=== PATIENT | male | born 1950 | race Caucasian/White ===

== ENCOUNTER → 2016-06-30 | Outpatient (REF) | payer OTHER ==
[~2016-06-30] MED LIST: AMLO10TA2 PO; CARV12.5 PO; FENO160T10 PO; HIZE20IN SC; INSULADS SC; LISI40TAB PO; MIRA3350 PO; OMEP20CA3 PO; ONGL1TAB9 PO; SERO1TAB2 PO
[2016-07-01 12:55] LABS: CALCIUM LEVEL 9.6 MG/DL (8.8-10.2); CREATININE FOR GFR 1.45 MG/DL (0.70-1.30); GLOMERULAR FILTRATION RATE 52.2 (>49); POTASSIUM SERUM 4.8 MEQ/L (3.5-5.1)
== END ==
LOC: M SFHCCLAY 14:05
PROVIDERS: ATTEND Family Medicine
DX: E11.22 Type 2 diabetes mellitus with diabetic chronic kidney disease (principal)

== ENCOUNTER → 2016-09-20 | Outpatient (REF) | payer OTHER ==
[2016-09-20 18:01] LABS: MEAN CORPUSCULAR HEMOGLOBIN 27.2 pg (27.0-33.0); MEAN CORPUSCULAR HGB CONC 32.5 g/dl (32.0-36.5); MEAN CORPUSCULAR VOLUME 83.9 fl (80.0-96.0); RED CELL DISTRIBUTION WIDTH 14.6 % (11.5-14.5); WHITE BLOOD COUNT 6.1 K/mm3 (4.0-10.0)
[2016-09-23 00:06] LABS: Lyme Disease IgG/IgM Antibodie <0.91 ISR (0.00-0.90); Lyme Disease IgM Ab Quantitati <0.80 index (0.00-0.79)
== END ==
LOC: M SFHCCLAY 12:09
PROVIDERS: ATTEND Family Medicine
DX: K11.20 Sialoadenitis, unspecified (principal); R53.82 Chronic fatigue, unspecified

== ENCOUNTER → 2016-09-21 | Outpatient (REF) | payer OTHER | LOC: M SFHCCLAY 17:17 | PROVIDERS: ATTEND Family Medicine | DX: K11.20 Sialoadenitis, unspecified (principal); R53.82 Chronic fatigue, unspecified ==

== ENCOUNTER → 2016-11-25 | Outpatient (REF) | payer OTHER | LOC: M LAB REF 13:37 | PROVIDERS: ATTEND Internal Medicine Gastroenterology | DX: A04.7 Enterocolitis due to Clostridium difficile (principal) ==

== ENCOUNTER → 2016-12-01 | Outpatient (CLI) | payer OTHER ==
--- NOTE | 2016-12-16 12:50 | DEXA ---
AP SPINE L1 - L4 1.230 0.3 0.4 LT FEMUR TOTAL 0.826 -1.4 -1.4 RT FEMUR TOTAL 0.881 -1.0 -1.0 TOTAL BODY TOTAL OTHER DUAL FEMUR FRAX* ASSESSMENT Risk factors: Not performed. 10 year probability of fracture Major osteoporotic fracture % Hip fracture % COMMENTS: Normal bone densitometry spine. There is low bone density of the hips. FOLLOW-UP: Recommendation for the next bone density exam: 2 years. WILEYD
== END ==
LOC: M WHC 13:24
PROVIDERS: ATTEND Orthopaedic Surgery
DX: M25.562 Pain in left knee (principal); M25.559 Pain in unspecified hip; M16.0 Bilateral primary osteoarthritis of hip

== ENCOUNTER → 2018-10-12 | Outpatient (CLI) | payer MEDICARE ==
[~2018-10-12] MED LIST changes: -AMLO10TA2 PO; +AMLO10TA5 PO; +LISI40TA PO; -LISI40TAB PO
--- NOTE | 2018-10-12 18:20 | REP ---
MR angiography of the carotids without contrast: History: Positional vertigo. Carotid MR angiography is compared with the prior study from November 06, 2014. Common carotid arteries are unremarkable. There is mild atherosclerotic plaquing in both proximal ICAs. There is approximately 50-60% stenosis in the proximal ICA on the right side. This appears somewhat less prominent on these noncontrast studies than on the prior exam. The distal vertebral arteries are patent bilaterally. The left is dominant in size. No vertebral artery stenosis is seen. 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 Electronically Signed by Caleb Hwang MD 10/15/2018 08:24 A
== END ==
LOC: M RAD 16:40
PROVIDERS: ATTEND Family Medicine
DX: I65.21 Occlusion and stenosis of right carotid artery (principal)

== ENCOUNTER → 2018-11-02 | Outpatient (CLI) | payer MEDICARE ==
[~2018-11-02] MED LIST changes: -OMEP20CA3 PO; +OMEP20CA4 PO
--- NOTE | 2018-11-02 14:40 | REPVR ---
EXAM: MR Head Without Contrast EXAM DATE/TIME: 11/02/2018 11:53 AM CLINICAL HISTORY: 68 years old, male; Dizziness; Patient HX: Vertigo TECHNIQUE: Imaging protocol: MR of the head without contrast. COMPARISON: No relevant prior studies available. FINDINGS: Brain: No mass effect or midline shift. No extra-axial fluid collections. Mild patchy increased signal intensity of the deep greater than subcortical white matter is nonspecific, but statistically likely to be mild chronic small vessel ischemic change in a patient of this age group. 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 The largest is 3 x 5 mm (series 301 image 4). On gradient echo imaging, no susceptibility artifact to represent parenchymal calcification or blood product. Fourth ventricle and posterior fossa contents are unremarkable. No diffusion restriction to indicate recent ischemic event. Midline shift: Appropriate midline flow voids are identified. Ventricles: There is age-appropriate global brain volume loss. Ventricles are within normal limits of size and configuration. Bones/joints: The calvarium is unremarkable. Soft tissues: Normal. Sinuses: The paranasal sinuses are unremarkable. Mastoid air cells: No significant mastoid disease. Orbits: The orbital contents are unremarkable. Sella: No sellar or parasellar masses. IMPRESSION: 1. No acute intracranial abnormality. No cause for dizziness and vertigo is identified. 2. No diffusion restriction to indicate recent ischemic event. 3. Mild patchy increased signal intensity of the deep greater than subcortical white matter is nonspecific, but statistically likely to be mild chronic small vessel ischemic change in a patient of this age group. 4. 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 The largest is 3 x 5 mm. Electronically signed by: Sid Braun On 11/02/2018 14:40:34 PM
== END ==
LOC: M RAD 11:21
PROVIDERS: ATTEND Family Medicine
DX: R42 Dizziness and giddiness (principal)

== ENCOUNTER 2018-11-20 12:44 | Outpatient (RCR) | payer MEDICARE | END 2018-11-21 | LOC: M PT 12:44 | PROVIDERS: ATTEND Psychiatry & Neurology Neurology | DX: H81.10 Benign paroxysmal vertigo, unspecified ear (principal) ==

== ENCOUNTER 2018-11-27 11:30 | Outpatient (RCR) | payer MEDICARE | END 2018-12-22 | LOC: M PT 11:30 | PROVIDERS: ATTEND Psychiatry & Neurology Neurology | DX: R42 Dizziness and giddiness (principal) ==

== ENCOUNTER → 2020-09-02 | Outpatient (CLI) | payer MEDICARE ==
[~2020-09-02] MED LIST changes: -AMLO10TA5 PO; +AMLO1TAB25 PO; +EZET10TA21 PO; +HYDR-3490 PO; +KLOR10TA76 PO; +LANTINJ4 SC; +LIDOCAINE 1% MDV 20ML VIAL As Ordered ONE; -LISI40TA PO; +LISI40TA4 PO; +OMEP1CAP73 PO; -OMEP20CA4 PO; +SENN-80 PO; +SITA50TAB PO; +SODIUM BICARBONATE 8.4% INJ 50MEQ 50 ML VIAL As Ordered ONE
[2020-09-02 09:05] VITALS: BP 142/72
[2020-09-02 09:52] LABS: HEMATOCRIT 37.5 % (42.0-52.0); HEMOGLOBIN 12.2 g/dl (13.5-17.5); MEAN CORPUSCULAR HEMOGLOBIN 26.2 pg (27.0-33.0); MEAN CORPUSCULAR HGB CONC 32.5 g/dl (32.0-36.5); MEAN CORPUSCULAR VOLUME 80.6 fl (80.0-96.0); PLATELET COUNT, AUTOMATED 262 10^3/uL (150-450); RED BLOOD COUNT 4.65 10^6/uL (4.30-6.10); WHITE BLOOD COUNT 6.1 10^3/uL (4.0-10.0)
[2020-09-02 10:20] LABS: CALCIUM LEVEL 9.6 MG/DL (8.8-10.2); CREATININE FOR GFR 1.48 MG/DL (0.70-1.30); GLOMERULAR FILTRATION RATE 50.3 (>49); POTASSIUM SERUM 3.1 MEQ/L (3.5-5.1)
--- NOTE | 2020-09-02 10:22 | REP ---
INDICATION: RT LOBE LIVER MASS. COMPARISON: CT 08/10/2020 and ultrasound 08/13/2020 from [facility]. TECHNIQUE: Real-time sonographic evaluation of right upper quadrant performed. Patient is scheduled for ultrasound-guided biopsy of a liver nodule today. FINDINGS: There is diffuse increased echotexture of the liver consistent with diffuse fatty infiltration. Several small hypoechoic areas are seen within the right lobe of the liver, 2 are adjacent to the gallbladder, another is seen in the anterior right lobe and another is seen somewhat more posteriorly in the right lobe. Maximum diameter of these hypoechoic areas 1.3 cm. The two areas adjacent to the gallbladder likely represent areas of spared, normal liver parenchyma in the setting of diffuse fatty infiltration. The other 2 areas in the right lobe appear quite similar and in eye opinion most likely represent areas of fatty sparing as well. IMPRESSION: Diffuse fatty infiltration of the liver. There are 4 small ill-defined hypoechoic areas in the right lobe of the liver as discussed in detail above which in my opinion are most compatible with focal areas of spared parenchyma in the setting of diffuse fatty infiltration of the liver. This was explained to the patient, as he expected an ultrasound-guided biopsy of the liver today. Recommend that the patient undergo MRI of the liver with and without contrast to further evaluate, as these entities, in my opinion, are likely benign, and hopefully the patient will avoid biopsy. <Electronically signed by Geovanny Lambert > 09/02/20 [id number]
== END ==
LOC: M IRPRO 08:11
PROVIDERS: ATTEND Family Medicine
DX: K76.0 Fatty (change of) liver, not elsewhere classified (principal)

== ENCOUNTER → 2020-09-03 | Outpatient (CLI) | payer MEDICARE ==
[~2020-09-03] MED LIST changes: -LIDOCAINE 1% MDV 20ML VIAL As Ordered ONE; +PROHANCE 279.3MG/ML 15ML VIAL As Ordered ONE; -SODIUM BICARBONATE 8.4% INJ 50MEQ 50 ML VIAL As Ordered ONE
--- NOTE | 2020-09-03 13:34 | REP ---
INDICATION: LIVER MASSES. COMPARISON: Ultrasound 09/02/2020, CT 08/10/2020. TECHNIQUE: Multiple sequences obtained in the axial, coronal and sagittal planes prior to and following the intravenous administration of 7 cc ProHance. FINDINGS: There is diffuse fatty infiltration of the liver. 5 lesions are identified scattered throughout the liver. There is a lesion in the left lobe superiorly measuring 8 mm in diameter. This demonstrates mild peripheral delayed enhancement consistent with an atypical hemangioma. Four lesions are identified it in portions of the right lobe of the liver. These are all hyperintense on T2 and all demonstrate peripheral nodular enhancement with delayed persistent diffuse enhancement. These are all consistent with benign hemangiomas. The largest is in the posterior segment of the right lobe and measures 1.8 cm in maximum diameter. No suspicious liver lesions are seen. The gallbladder is unremarkable in appearance. There is no evidence of biliary dilatation. The spleen, adrenals and pancreas are unremarkable. There is no pancreatic duct dilatation. A benign nonenhancing cyst in the posterior mid right kidney measures 3.8 cm. There are few other scattered nonenhancing benign cysts seen in both kidneys. There is no hydronephrosis. There is no adenopathy or free fluid. IMPRESSION: Five liver lesions are identified as discussed in detail above, all demonstrate characteristics of benign hemangiomas. There is diffuse fatty infiltration of the liver. <Electronically signed by Geovanny Lambert > 09/03/20 [id number]
== END ==
LOC: M RAD 10:46
PROVIDERS: ATTEND Family Medicine
DX: R16.0 Hepatomegaly, not elsewhere classified (principal)
CPT/HCPCS: 74183; A9576

== ENCOUNTER → 2020-10-15 | Outpatient (CLI) | payer MEDICARE ==
[~2020-10-15] MED LIST changes: -PROHANCE 279.3MG/ML 15ML VIAL As Ordered ONE
== END ==
LOC: M PLARAD 15:16
PROVIDERS: ATTEND Orthopaedic Surgery
DX: S63.501D Unspecified sprain of right wrist, subsequent encounter (principal); W18.30XD Fall on same level, unspecified, subsequent encounter; Y92.009 Unspecified place in unspecified non-institutional (private) residence as the place of occurrence of the external cause

== ENCOUNTER → 2021-01-06 | Outpatient (REF) | payer MEDICARE ==
[~2021-01-06] MED LIST changes: -KLOR10TA76 PO; +POTA-136 PO
== END ==
LOC: M SFHCCLAY 16:47
PROVIDERS: ATTEND Physician Assistant
DX: R51.9 Headache, unspecified (principal)
CPT/HCPCS: 87426; G0463; U0003

== ENCOUNTER → 2021-01-12 | Outpatient (REF) | payer MEDICARE ==
[2021-01-13 12:12] LABS: BASO % 0.6 % (0.0-1.0); EOS % 0.6 % (0.0-3.0); HEMATOCRIT 40.5 % (42.0-52.0); LYMPH # 1.4 10^3/uL (1.5-5.0); LYMPH % 22.7 % (24.0-44.0); MEAN CORPUSCULAR HEMOGLOBIN 26.8 pg (27.0-33.0); MEAN CORPUSCULAR HGB CONC 32.1 g/dl (32.0-36.5); MEAN CORPUSCULAR VOLUME 83.5 fl (80.0-96.0); MONO # 0.7 10^3/uL (0.0-0.8); MONO % 11.3 % (2.0-8.0); NEUTROPHILS # 4.1 10^3/uL (1.5-8.5); NEUTROPHILS % 63.9 % (36.0-66.0); PLATELET COUNT, AUTOMATED 266 10^3/uL (150-450); RED BLOOD COUNT 4.85 10^6/uL (4.30-6.10); WHITE BLOOD COUNT 6.4 10^3/uL (4.0-10.0)
[2021-01-13 13:50] LABS: ALBUMIN 3.7 GM/DL (3.2-5.2); BILIRUBIN,TOTAL 0.3 MG/DL (0.2-1.0); CALCIUM LEVEL 10.1 MG/DL (8.8-10.2); CREATININE FOR GFR 1.57 MG/DL (0.70-1.30); POTASSIUM SERUM 5.4 MEQ/L (3.5-5.1); TOTAL PROTEIN 7.1 GM/DL (6.4-8.2)
== END ==
LOC: M SFHCCLAY 15:12
PROVIDERS: ATTEND Physician Assistant
DX: R51.9 Headache, unspecified (principal)
CPT/HCPCS: 80053; 85025; 87505; 87798; G0463

== ENCOUNTER → 2021-08-27 | Outpatient (REF) | payer MEDICARE | LOC: M SFHCDERM 17:09 | PROVIDERS: ATTEND Nurse Practitioner Family | DX: C44.622 Squamous cell carcinoma of skin of right upper limb, including shoulder (principal) ==

== ENCOUNTER → 2021-09-13 | Outpatient (REF) | payer MEDICARE | LOC: M SFHCDERM 17:17 | PROVIDERS: ATTEND Nurse Practitioner Family | DX: D04.39 Carcinoma in situ of skin of other parts of face (principal) ==

== ENCOUNTER → 2021-10-04 | Outpatient (CLI) | payer MEDICARE | LOC: M PLAIMG 13:53 | DX: S46.012D Strain of muscle(s) and tendon(s) of the rotator cuff of left shoulder, subsequent encounter (principal); M54.2 Cervicalgia ==

== ENCOUNTER → 2021-10-05 | Outpatient (REF) | payer MEDICARE | LOC: M LAB REF 16:04 | PROVIDERS: ATTEND Surgery | DX: C44.622 Squamous cell carcinoma of skin of right upper limb, including shoulder (principal) ==

== ENCOUNTER → 2021-10-12 | Outpatient (REF) | payer MEDICARE | LOC: M LAB REF 16:09 | PROVIDERS: ATTEND Surgery | DX: L90.5 Scar conditions and fibrosis of skin (principal) ==

== ENCOUNTER → 2021-12-31 | Outpatient (CLI) | payer MEDICARE | LOC: M SOG 08:46 | PROVIDERS: ATTEND Orthopaedic Surgery | DX: M50.30 Other cervical disc degeneration, unspecified cervical region (principal) ==

== ENCOUNTER → 2022-01-30 | Outpatient (CLI) | payer MEDICARE ==
[~2022-01-30] MED LIST changes: +AMLO1TAB24 PO; +ATIV1TAB10 PO; +CORE20CA PO; +JARD1TAB PO; +MELO15TA28 PO; +ONDA-83 PO; +SPIR50TA4 PO; +TEST75GE TOP
== END ==
LOC: M LABSMTC 10:59
PROVIDERS: ATTEND Anesthesiology
DX: Z01.812 Encounter for preprocedural laboratory examination (principal); Z20.822 Contact with and (suspected) exposure to COVID-19

== ENCOUNTER → 2022-02-02 | Outpatient (REF) | payer MEDICARE ==
[2022-02-02 18:32] LABS: HEMATOCRIT 39.5 % (42.0-52.0); HEMOGLOBIN 12.7 g/dl (13.5-17.5); MEAN CORPUSCULAR HGB CONC 32.2 g/dl (32.0-36.5); MEAN CORPUSCULAR VOLUME 83.9 fl (80.0-96.0); PLATELET COUNT, AUTOMATED 236 10^3/uL (150-450); RED BLOOD COUNT 4.71 10^6/uL (4.30-6.10); WHITE BLOOD COUNT 6.6 10^3/uL (4.0-10.0)
[2022-02-02 18:52] LABS: HEMOGLOBIN A1c 7.3 %
[2022-02-02 18:56] LABS: BLOOD UREA NITROGEN 20 MG/DL (7-18); CARBON DIOXIDE LEVEL 26 MEQ/L (21-32); CHLORIDE LEVEL 108 MEQ/L (98-107); CREATININE FOR GFR 1.16 MG/DL (0.70-1.30); GLOMERULAR FILTRATION RATE > 60.0 (>49); GLUCOSE, FASTING 149 MG/DL (70-100); POTASSIUM SERUM 4.3 MEQ/L (3.5-5.1); SODIUM LEVEL 140 MEQ/L (136-145)
[2022-02-02 18:57] LABS: CALCIUM LEVEL 9.4 MG/DL (8.8-10.2)
== END ==
LOC: M SFHCCLAY 11:32
PROVIDERS: ATTEND Family Medicine
DX: I10 Essential (primary) hypertension (principal); E11.22 Type 2 diabetes mellitus with diabetic chronic kidney disease

== ENCOUNTER 2022-02-04 09:09 | Day surgery (SDC) | payer MEDICARE ==
[~2022-02-04] VITALS: Ht 175.3 cm; Wt 70.8 kg
[~2022-02-04 09:09] MED LIST changes: +CelecoXIB 400 MG CAP PO ONE; +LIDOCAINE 2% 100MG/5ML SDV (FOR ANES.) As Ordered ONE; +ceFAZolin SOD 2 GM in IV 1 EA IV ONE
[2022-02-04] MEDS ORDERED: propofoL 200 MG/20 ML VIAL As Ordered ONE ×2 (09:41→13:09)
[2022-02-04] MEDS ORDERED: ROCURONIUM BROMIDE 50 MG/5 ML VIAL As Ordered ONE ×2 (09:42→13:39)
[2022-02-04] MEDS ORDERED: fentaNYL 250 MCG/5 ML INJECTION As Ordered ONE (09:42)
[2022-02-04] MEDS ORDERED: dexameTHASONE 4 MG/ML 1ML VIAL (J1100 PER 1MG) As Ordered ONE (09:43)
[2022-02-04] MEDS ORDERED: MIDAZOLAM INJ 2MG/2ML VIAL (J2250 PER 1MG) As Ordered ONE (09:43)
[2022-02-04] MEDS ORDERED: ONDANSETRON 4MG 2ML VIAL As Ordered ONE (09:48)
[2022-02-04] MEDS ORDERED: SUGAMMADEX SODIUM 500 MG/5 ML VIAL (BRIDION) As Ordered ONE (10:37)
[2022-02-04] MEDS ORDERED: KETOROLAC 60MG 2ML VIAL As Ordered ONE (10:37)
[2022-02-04] MEDS ORDERED: LIDOCAINE 1% SDV 30ML VIAL As Ordered ONE (11:12)
[2022-02-04] MEDS ORDERED: BUPIVACAINE HCL 0.25% 30ML VIAL As Ordered ONE (11:12)
[2022-02-04] MEDS ORDERED: ACETAMINOPHEN 1000MG 100ML IV BTL (OFIRMEV) (J0131 PER 10MG) As Ordered ONE (13:09)
[2022-02-04] MEDS ORDERED: fentaNYL 100 MCG/2 ML INJECTION As Ordered ONE (13:39)
[2022-02-04] MEDS ORDERED: ONDANSETRON 4MG 2ML VIAL IV PRN (14:00)
[2022-02-04] MEDS ORDERED: MORPHINE 2 MG/ML 1ML VIAL IV PRN (14:00)
[2022-02-04] MEDS ORDERED: LR 1,000 ML IV SCH (14:00)
[2022-02-04] MEDS: fentaNYL 100 MCG/2 ML INJECTION IV PRN ×3 (14:24→14:48)
[2022-02-04] MEDS ORDERED: NORCO, ANEXSIA 5/325MG TABLET (HYDROcodone/ACETAMINOPHEN) PO PRN ×2 (14:35)
[2022-02-04] MEDS ORDERED: KETOROLAC 30 MG/ML 1ML VIAL IV PRN (14:35)
[2022-02-04] MEDS ORDERED: HYDR-3713 PO (14:42)
[2022-02-04 16:15] VITALS: BP 162/83
== END 2022-02-04 16:19 | disposition home or self-care (01) ==
LOC: M SDC 09:09
PROVIDERS: ATTEND Surgery
DX: K40.30 Unilateral inguinal hernia, with obstruction, without gangrene, not specified as recurrent (principal); D17.6 Benign lipomatous neoplasm of spermatic cord; I12.9 Hypertensive chronic kidney disease with stage 1 through stage 4 chronic kidney disease, or unspecified chronic kidney disease; E78.00 Pure hypercholesterolemia, unspecified; E11.22 Type 2 diabetes mellitus with diabetic chronic kidney disease; N18.4 Chronic kidney disease, stage 4 (severe); D80.1 Nonfamilial hypogammaglobulinemia; F31.9 Bipolar disorder, unspecified; F32.A Depression, unspecified; K57.90 Diverticulosis of intestine, part unspecified, without perforation or abscess without bleeding; R25.1 Tremor, unspecified; L57.0 Actinic keratosis; N40.1 Benign prostatic hyperplasia with lower urinary tract symptoms; N52.9 Male erectile dysfunction, unspecified; I72.0 Aneurysm of carotid artery; L28.1 Prurigo nodularis; K59.09 Other constipation; M19.90 Unspecified osteoarthritis, unspecified site; Z87.891 Personal history of nicotine dependence; Z79.899 Other long term (current) drug therapy; Z79.4 Long term (current) use of insulin; Z79.84 Long term (current) use of oral hypoglycemic drugs; Z79.890 Hormone replacement therapy; Z91.048 Other nonmedicinal substance allergy status; Z88.8 Allergy status to other drugs, medicaments and biological substances; Z88.5 Allergy status to narcotic agent
CPT/HCPCS: 49650; 88304; C1781; J0131; J0690; J1100; J1885; J2250; J2405; J3010; S2900

== ENCOUNTER → 2022-03-21 | Outpatient (CLI) | payer MEDICARE ==
[~2022-03-21] MED LIST changes: -CelecoXIB 400 MG CAP PO ONE; +HYDR-3713 PO; -LIDOCAINE 2% 100MG/5ML SDV (FOR ANES.) As Ordered ONE; -ceFAZolin SOD 2 GM in IV 1 EA IV ONE
== END ==
LOC: M SOG 13:46
PROVIDERS: ATTEND Physician Assistant
DX: M25.812 Other specified joint disorders, left shoulder (principal)

== ENCOUNTER → 2023-05-19 | Outpatient (REF) | payer MEDICARE ==
[~2023-05-19] MED LIST changes: +SENN-186 PO; -SENN-80 PO
[2023-05-19 20:19] LABS: RSV AMPLIFICATION NEGATIVE (NEGATIVE)
== END ==
LOC: M SFHCCLAY 14:30
PROVIDERS: ATTEND Physician Assistant
DX: R52 Pain, unspecified (principal)

== ENCOUNTER → 2023-07-05 | Outpatient (CLI) | payer MEDICARE | LOC: M PLAIMG 15:38 | PROVIDERS: ATTEND Family Medicine | DX: R42 Dizziness and giddiness (principal); E11.22 Type 2 diabetes mellitus with diabetic chronic kidney disease; I10 Essential (primary) hypertension ==

== ENCOUNTER → 2023-09-21 | Outpatient (CLI) | payer MEDICARE | LOC: M CLY 16:18 | PROVIDERS: ATTEND Family Medicine | DX: M54.42 Lumbago with sciatica, left side (principal); G89.29 Other chronic pain; M25.572 Pain in left ankle and joints of left foot ==

== ENCOUNTER → 2023-09-26 | Outpatient (CLI) | payer MEDICARE | LOC: M CLY 13:45 | PROVIDERS: ATTEND Family Medicine | DX: M54.42 Lumbago with sciatica, left side (principal); G89.29 Other chronic pain ==

== ENCOUNTER → 2023-12-08 | Outpatient (CLI) | payer MEDICARE | LOC: M CLY 15:53 | PROVIDERS: ATTEND Family Medicine | DX: M79.672 Pain in left foot (principal) ==

== ENCOUNTER → 2024-01-08 | Outpatient (CLI) | payer MEDICARE | LOC: M CLY 19:31 | PROVIDERS: ATTEND Family Medicine | DX: J18.9 Pneumonia, unspecified organism (principal) ==

== ENCOUNTER → 2024-01-24 | Outpatient (CLI) | payer MEDICARE | LOC: M CLY 13:49 | PROVIDERS: ATTEND Family Medicine | DX: J18.9 Pneumonia, unspecified organism (principal) ==

== ENCOUNTER → 2024-03-07 | Outpatient (CLI) | payer MEDICARE | LOC: M CLY 14:58 | PROVIDERS: ATTEND Family Medicine | DX: M53.3 Sacrococcygeal disorders, not elsewhere classified (principal); M16.0 Bilateral primary osteoarthritis of hip ==

== ENCOUNTER → 2024-05-13 | Outpatient (CLI) | payer MEDICARE | LOC: M RAD 16:32 | PROVIDERS: ATTEND Student in an Organized Health Care Education/Training Program | DX: S06.5XAA Traumatic subdural hemorrhage with loss of consciousness status unknown, initial encounter (principal); W18.30XA Fall on same level, unspecified, initial encounter; Y92.009 Unspecified place in unspecified non-institutional (private) residence as the place of occurrence of the external cause ==

== ENCOUNTER 2024-07-25 11:34 | Outpatient (CLI) | payer MEDICARE ==
[~2024-07-25] VITALS: Ht 176.5 cm; Wt 62.5 kg
[~2024-07-25 11:34] MED LIST changes: +ALBUTEROL SULFATE 2.5MG/0.5ML INH NEB SOLN INH PRN; +EPINEPHrine INJ 1 MG/ML 1ML AMP IM PRN; +diphenhydrAMINE 50MG/ML VIAL IV PRN; +methylPREDNISolone 125MG 2ML VIAL IV PRN
[2024-07-25] MEDS ORDERED: NS (Normal Saline) 0.9% 1,000 ML IV SCH (12:00)
[2024-07-25 12:13] VITALS: BP 177/90; O2SAT 96
[2024-07-25] MEDS: ACETAMINOPHEN 650 MG PO ONE (12:22)
[2024-07-25] MEDS: diphenhydrAMINE 50MG/ML VIAL IV ONE (12:22)
[2024-07-25] MEDS: IMMUNE GLOBULIN 10% 20 GM in IV 1 EA IV ONE (12:55)
[2024-07-25] MEDS: IMMUNE GLOBULIN 10% 10 GM in IV 1 EA IV ONE (12:55)
[2024-07-25 13:30] VITALS: BP 168/90; O2SAT 97
[2024-07-25 14:00] VITALS: BP 159/84; O2SAT 97
[2024-07-25 14:30] VITALS: BP 158/90; O2SAT 97
[2024-07-25 16:00] VITALS: BP 166/98; O2SAT 97
== END 2024-07-25 16:00 ==
LOC: M INFU 11:34
PROVIDERS: ATTEND Allergy & Immunology Allergy
DX: D83.9 Common variable immunodeficiency, unspecified (principal); Z88.8 Allergy status to other drugs, medicaments and biological substances
CPT/HCPCS: 96365; 96366; 96375; J1200; J1459

== ENCOUNTER 2024-08-22 12:24 | Outpatient (CLI) | payer MEDICARE ==
[~2024-08-22] VITALS: Ht 175.3 cm; Wt 65.9 kg
[~2024-08-22 12:24] MED LIST changes: +ALBUTEROL SULFATE 2.5MG/0.5ML INH CONCENTRATE NEB SOLN INH PRN; -ALBUTEROL SULFATE 2.5MG/0.5ML INH NEB SOLN INH PRN; +NS (Normal Saline) 0.9% 1,000 ML IV SCH
[2024-08-22 12:30] VITALS: BP 164/81; O2SAT 97
[2024-08-22] MEDS: diphenhydrAMINE 50MG/ML VIAL IV ONE (12:42)
[2024-08-22] MEDS: ACETAMINOPHEN 650 MG PO ONE (12:42)
[2024-08-22] MEDS: IMMUNE GLOBULIN 10% 20 GM in IV 1 EA IV ONE (12:43)
[2024-08-22] MEDS: IMMUNE GLOBULIN 10% 10 GM in IV 1 EA IV ONE (12:43)
[2024-08-22 13:15] VITALS: BP 140/66; O2SAT 96
[2024-08-22 13:45] VITALS: BP 160/82; O2SAT 96
[2024-08-22 14:15] VITALS: BP 158/88; O2SAT 97
[2024-08-22 15:30] VITALS: BP 158/74; O2SAT 98
== END 2024-08-22 15:45 | disposition home or self-care (01) ==
LOC: M INFU 12:24
PROVIDERS: ATTEND Allergy & Immunology Allergy
DX: D83.9 Common variable immunodeficiency, unspecified (principal); Z88.8 Allergy status to other drugs, medicaments and biological substances
CPT/HCPCS: 96365; 96366; 96375; J1200; J1459

== ENCOUNTER → 2024-10-22 | Outpatient (CLI) | payer MEDICARE ==
[~2024-10-22] MED LIST changes: -ALBUTEROL SULFATE 2.5MG/0.5ML INH CONCENTRATE NEB SOLN INH PRN; -EPINEPHrine INJ 1 MG/ML 1ML AMP IM PRN; +LISI40TA10 PO; -LISI40TA4 PO; -NS (Normal Saline) 0.9% 1,000 ML IV SCH; -diphenhydrAMINE 50MG/ML VIAL IV PRN; -methylPREDNISolone 125MG 2ML VIAL IV PRN
== END ==
LOC: M WUC 15:31
PROVIDERS: ATTEND Physician Assistant
DX: S60.221A Contusion of right hand, initial encounter (principal); W18.30XA Fall on same level, unspecified, initial encounter; Y92.009 Unspecified place in unspecified non-institutional (private) residence as the place of occurrence of the external cause

== ENCOUNTER → 2024-11-04 | Outpatient (CLI) | payer MEDICARE ==
[~2024-11-04] MED LIST changes: +ALBUTEROL SULFATE 2.5 MG/0.5 ML INH CONCENTRATE NEB SOLN INH PRN; +EPINEPHrine INJ 1 MG/ML 1ML AMP IM PRN; +NS (Normal Saline) 0.9% 1,000 ML IV SCH; +diphenhydrAMINE 25MG IV PRIOR TO INFUSION IV ONE; +diphenhydrAMINE 50 MG/ML VIAL IV PRN
[2024-11-04] MEDS: ACETAMINOPHEN 650MG PO PRIOR TO INFUSION PO ONE (13:53)
[2024-11-04] MEDS: IMMUNE GLOBULIN 10% 20 GM in IV 1 EA IV ONE (14:01)
[2024-11-04] MEDS: IMMUNE GLOBULIN 10% 10 GM in IV 1 EA IV ONE (14:02)
[2024-11-04 14:13] VITALS: BP 152/90; O2SAT 99
[2024-11-04 17:27] VITALS: BP 146/67; O2SAT 97
== END ==
LOC: M INFU 13:43
PROVIDERS: ATTEND Allergy & Immunology Allergy
DX: D83.9 Common variable immunodeficiency, unspecified (principal); Z88.8 Allergy status to other drugs, medicaments and biological substances
CPT/HCPCS: 96365; 96366; J1459

== ENCOUNTER 2024-12-02 13:45 | Outpatient (CLI) | payer MEDICARE ==
[~2024-12-02] VITALS: Ht 175.3 cm; Wt 61.3 kg
[~2024-12-02 13:45] MED LIST changes: +IMMUNE GLOBULIN 10% 10 GM in IV 1 EA IV ONE; +IMMUNE GLOBULIN 10% 20 GM in IV 1 EA IV ONE; -diphenhydrAMINE 25MG IV PRIOR TO INFUSION IV ONE
[2024-12-02 13:55] VITALS: BP 155/86; O2SAT 96
[2024-12-02] MEDS: diphenhydrAMINE 25MG IV PRIOR TO INFUSION IV ONE (14:06)
[2024-12-02] MEDS: ACETAMINOPHEN 650MG PO PRIOR TO INFUSION PO ONE (14:07)
[2024-12-02] MEDS: IMMUNE GLOBULIN 10% 20 GM in IV 1 EA IV ONE (14:43)
[2024-12-02] MEDS: IMMUNE GLOBULIN 10% 10 GM in IV 1 EA IV ONE (14:43)
[2024-12-02 15:15] VITALS: BP 163/89; O2SAT 98
[2024-12-02 15:45] VITALS: BP 166/90; O2SAT 99
[2024-12-02 16:15] VITALS: BP 168/91; O2SAT 97
[2024-12-02 17:40] VITALS: BP 158/78; O2SAT 98
== END 2024-12-02 17:50 ==
LOC: M INFU 13:45
PROVIDERS: ATTEND Allergy & Immunology Allergy
DX: D83.9 Common variable immunodeficiency, unspecified (principal); Z88.8 Allergy status to other drugs, medicaments and biological substances
CPT/HCPCS: 96365; 96366; 96375; J1200; J1459

== ENCOUNTER → 2025-01-27 | Outpatient (CLI) | payer MEDICARE ==
[~2025-01-27] VITALS: Ht 175.3 cm; Wt 61.3 kg
[~2025-01-27] MED LIST changes: +ACETAMINOPHEN 650 MG PO ONE; -EZET10TA21 PO; +EZET10TA57 PO; -IMMUNE GLOBULIN 10% 10 GM in IV 1 EA IV ONE; -IMMUNE GLOBULIN 10% 20 GM in IV 1 EA IV ONE; +diphenhydrAMINE 50 MG/ML VIAL IV ONE
[2025-01-27 12:45] VITALS: BP 138/87; O2SAT 98
[2025-01-27] MEDS: IMMUNE GLOBULIN 10% 10 GM in IV 1 EA IV ONE (13:14)
[2025-01-27] MEDS: IMMUNE GLOBULIN 10% 20 GM in IV 1 EA IV ONE (13:14)
[2025-01-27 13:45] VITALS: BP 163/83; O2SAT 97
[2025-01-27 14:15] VITALS: BP 158/88; O2SAT 96
[2025-01-27 15:16] VITALS: BP 156/84; O2SAT 98
[2025-01-27 16:12] VITALS: BP 160/83; O2SAT 97
== END ==
LOC: M INFU 12:34
PROVIDERS: ATTEND Allergy & Immunology Allergy
DX: D83.9 Common variable immunodeficiency, unspecified (principal); Z88.6 Allergy status to analgesic agent; Z88.8 Allergy status to other drugs, medicaments and biological substances; Z91.048 Other nonmedicinal substance allergy status
CPT/HCPCS: 96365; 96366; J1459

== ENCOUNTER 2025-02-24 12:44 | Outpatient (CLI) | payer MEDICARE ==
[~2025-02-24] VITALS: Ht 175.3 cm; Wt 62.7 kg
[~2025-02-24 12:44] MED LIST changes: -ACETAMINOPHEN 650 MG PO ONE; -diphenhydrAMINE 50 MG/ML VIAL IV ONE
[2025-02-24 12:50] VITALS: BP 141/93; O2SAT 99
[2025-02-24] MEDS: diphenhydrAMINE 50 MG/ML VIAL IV ONE (13:05)
[2025-02-24] MEDS: ACETAMINOPHEN 650 MG PO ONE (13:06)
[2025-02-24] MEDS: IMMUNE GLOBULIN 10% 20 GM in IV 1 EA IV ONE (13:42)
[2025-02-24] MEDS: IMMUNE GLOBULIN 10% 10 GM in IV 1 EA IV ONE (13:44)
[2025-02-24 14:15] VITALS: BP 160/82; O2SAT 98
[2025-02-24 14:45] VITALS: BP 155/79; O2SAT 98
[2025-02-24 16:42] VITALS: BP 166/81; O2SAT 97
== END 2025-02-24 16:45 | disposition home or self-care (01) ==
LOC: M INFU 12:44
PROVIDERS: ATTEND Allergy & Immunology Allergy
DX: D83.9 Common variable immunodeficiency, unspecified (principal); Z88.8 Allergy status to other drugs, medicaments and biological substances
CPT/HCPCS: 96365; 96366; 96375; J1200; J1459

== ENCOUNTER 2025-04-01 12:33 | Outpatient (CLI) | payer MEDICARE ==
[~2025-04-01] VITALS: Ht 175.3 cm; Wt 61.0 kg
[~2025-04-01 12:33] MED LIST changes: +ACETAMINOPHEN 650 MG PO ONE; +IMMUNE GLOBULIN 10% 10 GM in IV 1 EA IV ONE; +IMMUNE GLOBULIN 10% 20 GM in IV 1 EA IV ONE; +diphenhydrAMINE 50 MG/ML VIAL IV ONE
[2025-04-01 12:50] VITALS: BP 140/62
[2025-04-01] MEDS: diphenhydrAMINE 50 MG/ML VIAL IV ONE (13:01)
[2025-04-01] MEDS: ACETAMINOPHEN 650 MG PO ONE (13:02)
[2025-04-01] MEDS: IMMUNE GLOBULIN 10% 20 GM in IV 1 EA IV ONE (13:04)
[2025-04-01] MEDS: IMMUNE GLOBULIN 10% 10 GM in IV 1 EA IV ONE (13:05)
[2025-04-01 14:00] VITALS: BP 163/72; O2SAT 98
[2025-04-01 16:00] VITALS: BP 138/76; O2SAT 95
== END 2025-04-01 16:00 | disposition home or self-care (01) ==
LOC: M INFU 12:33
PROVIDERS: ATTEND Allergy & Immunology Allergy
DX: D83.9 Common variable immunodeficiency, unspecified (principal); Z88.8 Allergy status to other drugs, medicaments and biological substances; Z91.09 Other allergy status, other than to drugs and biological substances
CPT/HCPCS: 96365; 96366; 96375; J1200; J1459